=== PATIENT | female | born 1990 | race Caucasian/White ===

== ENCOUNTER 2019-09-24 05:54 | Inpatient (IN) | payer MEDICAID ==
[2019-09-24] MEDS ORDERED: RINGERS SOLUTION,LACTATED 1,000 ML IV ONE (06:09)
[2019-09-24] MEDS ORDERED: OXYTOCIN/0.9 % SODIUM CHLORIDE 30 UNIT/500 ML RTUINJ IV PRN ×2 (06:12→15:51)
[2019-09-24 06:57] LABS: ABSOLUTE EOSINOPHILS # (AUTO) 0.1 10^3/uL (0.0-0.6); ABSOLUTE LYMPHOCYTES (AUTO) 2.2 10^3/uL (0.5-4.7); ABSOLUTE MONOCYTES (AUTO) 0.6 10^3/uL (0.1-1.4); ABSOLUTE NEUT (AUTO) 8.2 10^3/uL (1.7-8.2); BASOPHILS % (AUTO) 0.3 % (0-2); EOSINOPHILS % (AUTO) 1.3 % (0-6); HEMATOCRIT 36.2 % (36.0-47.0); HEMOGLOBIN 12.6 g/dL (12.0-15.5); LYMPHOCYTES % (AUTO) 19.5 % (13-45); MEAN CORPUSCULAR HEMOGLOBIN 29.8 pg (27.0-33.4); MEAN CORPUSCULAR HGB CONC 34.8 g/dL (32.0-36.0); MEAN CORPUSCULAR VOLUME 86 fl (80-97); MONOCYTES % (AUTO) 5.3 % (3-13); PLATELET COUNT 272 10^3/uL (150-450); RED BLOOD COUNT 4.22 10^6/uL (3.72-5.28); SEGMENTED NEUTROPHILS % (AUTO) 73.6 % (42-78); TOTAL CELLS COUNTED % (AUTO) 100 %; WHITE BLOOD COUNT 11.2 10^3/uL (4.0-10.5)
[2019-09-24] MEDS: RINGERS SOLUTION,LACTATED 1,000 ML IV PRN ×2 (07:00→14:01)
[2019-09-24 07:15] LABS: APPEARANCE,URINE CLEAR; BILIRUBIN,URINE NEGATIVE (NEGATIVE); COLOR,URINE COLORLESS; GLUCOSE, URINE NEGATIVE (NEGATIVE); KETONES,URINE NEGATIVE (NEGATIVE); LEUKOCYTE ESTERASE,URINE NEGATIVE (NEGATIVE); NITRITE,URINE NEGATIVE (NEGATIVE); PROTEIN,URINE NEGATIVE (NEGATIVE); URINE SPECIFIC GRAVITY 1.002; UROBILINOGEN,URINE NEGATIVE mg/dL (<2.0)
[2019-09-24] MEDS ORDERED: OXYTOCIN 10 UNIT/ML VIAL ONE (07:19)
[2019-09-24] MEDS ORDERED: MISOPROSTOL 0.2 MG TABLET ONE (07:19)
[2019-09-24] MEDS ORDERED: OXYTOCIN/0.9 % SODIUM CHLORIDE 30 UNIT/500 ML RTUINJ ONE (07:20)
[2019-09-24] MEDS ORDERED: LIDOCAINE 1% INJ-PF (10 MG/ML) 30 ML SDV ONE (07:20)
[2019-09-24 07:36] LABS: URINE AMPHETAMINES SCREEN NEGATIVE; URINE BARBITURATES SCREEN NEGATIVE; URINE BENZODIAZEPINES SCREEN NEGATIVE; URINE COCAINE SCREEN NEGATIVE; URINE MARIJUANA (THC) SCREEN NEGATIVE; URINE METHADONE SCREEN NEGATIVE; URINE PHENCYCLIDINE SCREEN NEGATIVE
--- NOTE | 2019-09-24 08:01 | Admission Physical ---
Datetime Report Generated by CPN: 09/24/2019 08:01 CURRENT ADMISSION Chief Complaint: Scheduled Induction of Labor Chief Complaint Other: at 41.1 wks EGA for IOL due to post dates. Good FM, no LOF or VB Indication for Induction: Post Dates Admit Impression : Postterm, Intrauterine Admit Plan: Admit to Unit; Initiate Labor Protocol; Initiate Labor Induction Protocol ALLERGIES Medication Allergies: Yes Medication Allergies: aspirin/Facial swelling (09/24/2019) Latex: No Latex Allergies Food Allergies: NKA Environmental Allergies: NKA OBSTETRICAL HISTORY EDC: 09/16/2019 00:00 : 2 Para: 1 Term: 1 : 0 SAB: 0 IAB: 0 Ectopic: 0 Livin Cesareans: 0 VBACs: 0 Multiple Births: 0 Gestational Diabetes: No Rh Sensitization: No Incompetent Cervix: No STEPHANIE: No Infertility: No ART Treatment: No Uterine Anomaly: No IUGR: No Hx Previous C/S: No Macrosomia: No Hx Loss/Stillborn: No PIH: No Hx : No Placenta Previa/Abruption: No Depression/PP Depression: No PTL/PROM: No Post Hemorrhage: No Current Procedures: Ultrasound; NST Obstetrical History Comments: , induction for postdats SEE RECORDS Alcohol: No Marijuana : No Cocaine: No Other Illicit Drugs: No Cigarettes: Former Smoker. [id number] Cigarette Comments: [facility] 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 Surgery: No Heart Disease: No Hosp/Surgery: Yes Autoimmune Disorder: No Anesthetic Complications: No Kidney Disease: No Abnormal Pap Smear: No Neuro/Epilepsy: No Psychiatric Disorders: No Other Medical Diseases: No Hepatitis/Liver Disease: No Significant Family History: No Varicosities/Phlebitis: No Trauma/Violence : No Thyroid Dysfunction: No Medical History Comments: Hospital stay for son's INFECTIOUS HISTORY Gonorrhea: No Genital Herpes: No Chlamydia: No Tuberculosis: No Syphilis: No Hepatitis: No HIV/AIDS Exposure: No Rash or Viral Illness: No HPV: No PHYSICAL EXAM General: Normal HEENT: Normal Neurologic: Normal Thyroid: Normal Heart: Normal Lungs: Normal Breast: Normal Back: Normal Abdomen: Normal Genitourinary Exam: Normal Extremities: Normal DTRs: Normal Pelvic Type: Adequate Vital Signs: Reviewed; Within Normal Limits VAGINAL EXAM Dilatation: 2 Effacement: 75 Contraction Comments: No regular contractions MEMBRANES Membranes: Intact FETUS A EGA: 41.1 Monitoring: External US FHR- Baseline: 130 Variability: Moderate 6-25bpm Accelerations: 15X15 Decelerations: None FHR Category: Category I Presentation: Vertex Admit Comment: at 41.1 wks EGA for IOL for post dates -Admit to LDR -NPO and IVFs . LR at 125 cc/hr, after 1 liter LR -GBS negative -Hx of one prior , anticipate -Desires epidural PLANS FOR LABOR AND DELIVERY Labor and Delivery: None Pain Management: Natural; Epidural Feeding Preference: Breast Benefit of Breast Feed Discussed: Yes Circumcision: N/A INFORMED CONSENT Informed Consent Obtained: Vaginal Delivery; Induction of Labor; Risks, Benefits and Alternatives Discussed Signature: with User ID: Alexandra : with User ID: Alexandra
[2019-09-24] MEDS ORDERED: PROMETHAZINE HCL INJ 25 MG/1 ML VIAL IV ONE (11:36)
[2019-09-24] MEDS ORDERED: NALBUPHINE HCL INJ 10 MG/1 ML AMPULE INJ ONE (11:36)
[2019-09-24] MEDS ORDERED: PROMETHAZINE HCL INJ 25 MG/1 ML VIAL ONE (11:42)
[2019-09-24] MEDS ORDERED: NALBUPHINE HCL INJ 10 MG/1 ML AMPULE ONE (11:43)
[2019-09-24] MEDS ORDERED: EPHEDRINE SULFATE INJ 50 MG/1 ML AMPULE ONE (13:17)
[2019-09-24] MEDS ORDERED: FENTANYL/BUPIVACAINE/NS/PF 300 MCG/150 ML RTUINJ EPI ONE (13:18)
[2019-09-24] MEDS ORDERED: BUPIVACAINE HCL 0.25 % INJ/PF (2.5 MG/1 ML) 30 ML VIAL ONE (13:18)
[2019-09-24] MEDS ORDERED: FENTANYL CITRATE INJ/PF 100 MCG/2 ML AMPUL ONE (13:19)
[2019-09-24] MEDS ORDERED: DIPHENHYDRAMINE HCL 25 MG CAPSULE PO PRN (15:51)
[2019-09-24] MEDS ORDERED: MAGNESIUM HYDROXIDE SUSP 30 ML UDCUP PO PRN (15:51)
[2019-09-24] MEDS ORDERED: NA PHOS,M-B/NA PHOS,DI-BA (ADULT) 133 ML ENEMA PR PRN (15:51)
[2019-09-24] MEDS ORDERED: PSEUDOEPHEDRINE HCL 30 MG TABLET PO PRN (15:51)
[2019-09-24] MEDS ORDERED: DIPH/PERTUSS(ACELL)/TETANUS VAC/PF 0.5 ML SYR (>=10YO) IM PRN (15:51)
[2019-09-24] MEDS ORDERED: ACETAMINOPHEN 650 MG SUPP.RECT PR PRN (15:51)
[2019-09-24] MEDS ORDERED: BENZOCAINE/MENTHOL AEROSOL SPRAY 56 ML TOP PRN (15:51)
[2019-09-24] MEDS ORDERED: ZOLPIDEM TARTRATE 5 MG TABLET PO PRN (15:51)
[2019-09-24] MEDS ORDERED: ACETAMINOPHEN WITH CODEINE #3 TABLET PO PRN ×2 (15:51)
[2019-09-24] MEDS ORDERED: PROMETHAZINE HCL 25 MG TABLET PO PRN (15:51)
[2019-09-24] MEDS ORDERED: GLYCERIN/WITCH HAZEL LEAF 1 EACH MED..WIPE TP PRN (15:51)
[2019-09-24] MEDS ORDERED: DIBUCAINE 1% OINTMENT 28 GM TP PRN (15:51)
[2019-09-24] MEDS ORDERED: PROMETHAZINE HCL INJ 25 MG/1 ML VIAL IV PRN (15:51)
[2019-09-24] MEDS ORDERED: PROMETHAZINE HCL 25 MG SUPP.RECT PR PRN (15:51)
[2019-09-24] MEDS ORDERED: MEASLES,MUMPS&RUBELLA VACC/PF 0.5 ML VIAL SUBCUT PRN (15:51)
[2019-09-24] MEDS: DOCUSATE SODIUM 100 MG CAPSULE PO SCH (19:17)
[2019-09-24] MEDS: FERROUS SULFATE 325 MG TABLET PO SCH (19:17)
[2019-09-24] MEDS: FAMOTIDINE 20 MG TABLET PO SCH (22:48)
[2019-09-24] MEDS: IBUPROFEN 800 MG TABLET PO SCH (22:48)
[2019-09-25] MEDS: IBUPROFEN 800 MG TABLET PO SCH ×2 (06:08→13:17)
[2019-09-25 07:01] LABS: HEMOGLOBIN 11.8 g/dL (12.0-15.5); MEAN CORPUSCULAR HGB CONC 34.8 g/dL (32.0-36.0); MEAN CORPUSCULAR VOLUME 86 fl (80-97); PLATELET COUNT 247 10^3/uL (150-450); RED BLOOD COUNT 3.94 10^6/uL (3.72-5.28); RED CELL DISTRIBUTION WIDTH 12.8 % (11.5-14.0); WHITE BLOOD COUNT 13.9 10^3/uL (4.0-10.5)
[2019-09-25 08:25] VITALS: BP 118/68
--- NOTE | 2019-09-25 09:28 | PDOC PROGRESS REPORT ---
Subjective-OB Progress Note for:: 09/25/19 Subjective: Doing well, hsb at [facility], would like to go home if baby can go, , voiding Physical Exam (OB) Vital Signs: Temp Pulse Resp BP Pulse Ox 97.6 F 74 16 118/68 97 09/25/19 08:03 09/25/19 08:03 09/25/19 08:03 09/25/19 08:03 09/25/19 08:03 Intake & Output 09/24/19 09/25/19 09/26/19 06:59 06:59 06:59 Intake Total 877 Balance 877 Weight 108.3 kg - PIH/Pre-Eclampsia DTR's: 2 + Clonus: Negative Headache: Absent Epigastric Pain: No Visual Changes: No - Lochia Lochia Amount: Scant < 10 ml Lochia Color: Rubra/Red - Abdomen Description: Soft, Flat Hernia Present: No Fundal Description: Firm Fundal Height: u/u - u/2 Objective-Diagnostic Laboratory: 09/25/19 06:32 09/25/19 06:32 WBC 13.9 H RBC 3.94 Hgb 11.8 L Hct 34.0 L MCV 86 MCH 30.0 MCHC 34.8 RDW 12.8 Plt Count 247 Assessment and Plan(PN) - Assessment and Plan (1) Vaginal delivery Is this a current diagnosis for this admission?: Yes - Time Spent with Patient Time with patient: Less than 15 minutes Medications reviewed and adjusted accordingly: Yes - Disposition Anticipated Discharge: Home Within: within 24 hours
[2019-09-25] MEDS: FERROUS SULFATE 325 MG TABLET PO SCH ×2 (09:48→17:20)
[2019-09-25] MEDS: FAMOTIDINE 20 MG TABLET PO SCH (09:48)
[2019-09-25] MEDS: DOCUSATE SODIUM 100 MG CAPSULE PO SCH ×2 (09:48→17:20)
[2019-09-25] MEDS ORDERED: SENNOSIDES/DOCUSATE 8.6-50 MG 1 EACH TABLET PO SCH (10:00)
[2019-09-25] MEDS ORDERED: PRENATAL VITAMIN W DHA CAPSULE PO SCH (10:00)
--- NOTE | 2019-09-25 11:09 | PDOC DISCHARGE SUMMARY ---
Impression - Admit/DC Date/PCP Admission Date/Primary Care Provider: 09/24/19 05:54 Discharge Date: 09/25/19 - Discharge Diagnosis (1) Vaginal delivery Is this a current diagnosis for this admission?: Yes - Additional Information Resuscitation Status: Full Code Discharge Diet: As Tolerated, Regular Discharge Activity: Activity As Tolerated, Pelvic Rest Referrals: IVY DELUCA MD [ACTIVE STAFF] - (RTC 4 weeks) Home Medications: Prenat 115/Iron Fum/Folic/Dss [ 19 Tablet] 1 each PO DAILY 09/24/19 HPI Gestational Age: 41.1 Reason(s) for Admission: Induction of Labor Procedures: NST, Ultrasound Intrapartum Procedure(s): Spontaneous Vaginal Delivery Complication(s): Laceration-Perineal Laceration-Degree: 1st Hospital Course Hospital Course: routine Results Laboratory Results: WBC 13.9 10^3/uL (4.0-10.5) H 09/25/19 06:32 RBC 3.94 10^6/uL (3.72-5.28) 09/25/19 06:32 Hgb 11.8 g/dL (12.0-15.5) L 09/25/19 06:32 Hct 34.0 % (36.0-47.0) L 09/25/19 06:32 MCV 86 fl (80-97) 09/25/19 06:32 MCH 30.0 pg (27.0-33.4) 09/25/19 06:32 MCHC 34.8 g/dL (32.0-36.0) 09/25/19 06:32 RDW 12.8 % (11.5-14.0) 09/25/19 06:32 Plt Count 247 10^3/uL (150-450) 09/25/19 06:32 Lymph % (Auto) 19.5 % (13-45) 09/24/19 06:26 [place] % (Auto) 5.3 % (3-13) 09/24/19 06:26 Eos % (Auto) 1.3 % (0-6) 09/24/19 06:26 Baso % (Auto) 0.3 % (0-2) 09/24/19 06:26 Absolute Neuts (auto) 8.2 10^3/uL (1.7-8.2) 09/24/19 06:26 Absolute Lymphs (auto) 2.2 10^3/uL (0.5-4.7) 09/24/19 06:26 Absolute Monos (auto) 0.6 10^3/uL (0.1-1.4) 09/24/19 06:26 Absolute Eos (auto) 0.1 10^3/uL (0.0-0.6) 09/24/19 06:26 Absolute Basos (auto) 0.0 10^3/uL (0.0-0.2) 09/24/19 06:26 Seg Neutrophils % 73.6 % (42-78) 09/24/19 06:26 Urine Color COLORLESS 09/24/19 06:05 Urine Appearance CLEAR 09/24/19 06:05 Urine pH 7.0 (5.0-9.0) 09/24/19 06:05 Ur Specific [place] 1.002 09/24/19 06:05 Urine Protein NEGATIVE mg/dL (NEGATIVE) 09/24/19 06:05 Urine Glucose (UA) NEGATIVE mg/dL (NEGATIVE) 09/24/19 06:05 Urine Ketones NEGATIVE mg/dL (NEGATIVE) 09/24/19 06:05 Urine Blood SMALL (NEGATIVE) H 09/24/19 06:05 Urine Nitrite NEGATIVE (NEGATIVE) 09/24/19 06:05 Urine Bilirubin NEGATIVE (NEGATIVE) 09/24/19 06:05 Urine Urobilinogen NEGATIVE mg/dL (<2.0) 09/24/19 06:05 Ur Leukocyte Esterase NEGATIVE (NEGATIVE) 09/24/19 06:05 Urine Ascorbic Acid NEGATIVE (NEGATIVE) 09/24/19 06:05 Urine Opiates Screen NEGATIVE 09/24/19 06:06 Urine Methadone Screen NEGATIVE 09/24/19 06:06 Ur Barbiturates Screen NEGATIVE 09/24/19 06:06 Ur Phencyclidine Scrn NEGATIVE 09/24/19 06:06 Ur Amphetamines Screen NEGATIVE 09/24/19 06:06 U Benzodiazepines Scrn NEGATIVE 09/24/19 06:06 Urine Cocaine Screen NEGATIVE 09/24/19 06:06 U Marijuana (THC) Screen NEGATIVE 09/24/19 06:06 RPR NONREACTIVE (NONREACTIVE) 09/24/19 06:26 Blood Type O POSITIVE 09/24/19 06:26 Antibody Screen NEGATIVE 09/24/19 06:26 Plan Health Concerns: routine Plan of Treatment: normal pp care, rev S&S to report Goals: normal pp course, no complications Time Spent: Less than 30 Minutes
--- NOTE | 2019-09-26 15:29 | Delivery Summary ---
Del Sum A-C Datetime Report Generated by CPN: 09/26/2019 15:28 DELIVERY PERSONNEL DELIVERY PERSONNEL: [id number] Delivery Doctor:: Zulema Reynoso CNM WAYBILL CLERK:: Marcin Arteaga WAYBILL CLERK Labor and Delivery Nurse:: Tere Maria RN Labor and Delivery Nurse:: TREVOR Allan Nursery Nurse:: Teri Hayden RN- BON [place] Tech/PUSH BUTTON SWITCH ASSEMBLER: Renetta Viveros, DIRECTOR OF CORPORATE STRATEGY Additional Personnel: : Juana Ariza, RN MATERNAL INFORMATION Delivery Anesthesia: Epidural Medications After Delivery: Pitocin 30 Units in 500ml NS/D5W Estimated Blood Loss (ml): 100 Delivery QBL: 100 Delivery QBL Comment: 100 Maternal Complications: None Provider Comments: Called to Room 2. Patient complete and pushing w vertex at perineum. Vertex delivered; vertex retracted. Head of bed flattened, [place], suprapubic pressure toward left side with delivery of anterior, left shoulder, then bodydelivered with patient pushing continuously. 1 minute dystocia. Face wiped. Spontaneous cry and respirations. Baby placed on patient's abdomen and cared for by nursery RN. Cord clamped x2, after 2 min delay, then cut by fob. Apgars 8-8. 3 vessel cord. 2 superficial vaginal tears repaired. Patient tolerated procedure well. LABOR SUMMARY EDC: 09/16/2019 00:00 No. Babies in Womb: 1 Attempted: No Labor Anesthesia: Epidural LABOR INFORMATION Reason for Induction: Post Dates Onset of Labor: 09/24/2019 08:30 (Annotations: Data stored by CPN on behalf of user) Complete Dilatation: 09/24/2019 14:45 Oxytocin: Induction Group B Beta Strep: Negative Antibiotics # of Doses: 0 Steroids Given: None Reason Steroids Not Administered: Not Applicable MEMBRANES Membranes Rupture Method: Artificial Membranes Rupture Method: Spontaneous Rupture of Membranes: 09/24/2019 10:36 Length of Rupture (hr): 4.70 Amniotic Fluid Color: Clear Amniotic Fluid Color: Clear Amniotic Fluid Amount: Small Amniotic Fluid Amount: Scant Amniotic Fluid Odor: Normal STAGES OF LABOR Stage 1 hr: 6 Stage 1 min: 15 Stage 2 hr: 0 Stage 2 min: 33 Stage 3 hr: 0 Stage 3 min: 5 Total Time in Labor hr: 6 Total Time in Labor min: 53 VAGINAL DELIVERY Episiotomy: None Laceration #1: Vaginal Laceration Extension #1: First Degree Laceration Repair: Yes Laceration Repair Note: 2 superficial right vaginal tears repaired using interrupted stitches Sponge Count Correct: N/A Sharps Count Correct: Yes CSECTION DELIVERY Primary Indication: N/A Secondary Indication: N/A CSection Incidence: N/A Labor: N/A Elective: N/A CSection Incision: N/A BABY A INFORMATION Delivery Date/Time: 09/24/2019 15:18 Method of Delivery: Vaginal Method of Delivery: Vaginal Nurse Controlled Delivery: No Born in Route : No : N/A Forceps: N/A Vacuum Extraction: N/A Shoulder Dystocia : Yes SHOULDER DYSTOCIA BABY A 1st Intervention to Resolve: McRobert's Maneuver 2nd Intervention to Resolve: Suprapubic Pressure 3rd Intervention to Resolve: LOWERED HEAD OF THE BED Verify NO Fundal Pressure: No Fundal Pressure Applied Arm Under Symphisis at Del: Left PRESENTATION/POSITION BABY A Presentation: Cephalic Presentation: Cephalic Presentation: Cephalic Presentation: Cephalic Cephalic Presentation: Vertex Vertex Position: Right Occipital Anterior Breech Presentation: N/A PLACENTA INFORMATION BABY A Placenta Delivery Time : 09/24/2019 15:23 Placenta Method of Delivery: Spontaneous Placenta Method of Delivery: Spontaneous Placenta Status: Delivered SCORES BABY A Heart Rate 1 min: >100 bpm Resp Effort 1 min: Good Cry Reflex Irritability 1 min: Cough or Sneeze or Pulls Away Muscle Tone 1 min: Some Flexion of Extremities Color 1 min: Body Brea, Extremities Blue SCORE 1 MIN: 8 Heart Rate 5 min: >100 bpm Resp Effort 5 min: Good Cry Reflex Irritability 5 min: Cough or Sneeze or Pulls Away Muscle Tone 5 min: Some Flexion of Extremities Color 5 min: Body Brea, Extremities Blue Resuscitation Effort 5 min: N/A SCORE 5 MIN: 8 Resuscitation Effort 10 min: N/A INFANT INFORMATION BABY A Gestational Age at Delivery: 41.1 Gestational Status: Late Term- 41- 41.6 Weeks Outcome : Liveborn Condition : Stable Infant Sex: Female Sex: Female IDENTIFICATION BABY A Infant Verification Date/Time: 09/24/2019 16:34 ID Band Number: [id number] Mother's Name Verified: Yes Infant RN Verifying : Pravin HAYDEN, RN/ BL ROULUND, RN WEIGHT/LENGTH BABY A Infant Birthweight (gm): 3490 Weight (lb): 7 Weight (oz): 11 Infant Length (in): 19.75 Infant Length (cm): 50.17 CORD INFORMATION BABY A No. Cord Vessels: 3 Nuchal Cord : Around Neck x1, Loose Cord Blood Taken: Yes-For Eval (Mom's Blood Type - or O+) Infant Suction: None ASSESSMENT BABY A Infant Complications: Meconium; Shoulder Dystocia; Other Complications- Other: NUBAIN/PHENERGAN @ 1154 Physical Findings at Delivery: Caput Succedaneum; Molding of the Head; Bruising Infant Respirations: Appears Normal Skin to Skin: Yes Skin to Skin: Yes Concession Supervisor/ALS Called : No Infant Care By: Enid Hayden RN Transferred To: Remains with Mother BABY B INFORMATION : N/A SIGNATURES Assignment: Ahsan Rawls MD Signature: with User ID: Carmel : with User ID: [email or web address] : I personally evaluated and examined the patient in conjunction with the MLP and agree with the assessment, treatment plan and disposition. : I personally evaluated and examined the patient in conjunction with the MLP and agree with the assessment, treatment plan and disposition.
== END 2019-09-25 19:42 | disposition home or self-care (01) | DRG 807 ==
LOC: LR 05:54 → 2S 18:15
PROVIDERS: ADMIT Obstetrics & Gynecology; ATTEND Obstetrics & Gynecology
PROC: 10E0XZZ Delivery of Products of Conception, External Approach (ICD-10-PCS; principal; 2019-09-24)
PROC: 0HQ9XZZ Repair Perineum Skin, External Approach (ICD-10-PCS; 2019-09-24)
PROC: 3E033VJ Introduction of Other Hormone into Peripheral Vein, Percutaneous Approach (ICD-10-PCS; 2019-09-24)
PROC: 10907ZC Drainage of Amniotic Fluid, Therapeutic from Products of Conception, Via Natural or Artificial Opening (ICD-10-PCS; 2019-09-24)
DX: O48.0 Post-term pregnancy (principal); Z37.0 Single live birth; O70.0 First degree perineal laceration during delivery; O69.81X0 Labor and delivery complicated by cord around neck, without compression, not applicable or unspecified; O66.0 Obstructed labor due to shoulder dystocia; O77.0 Labor and delivery complicated by meconium in amniotic fluid; Z3A.41 41 weeks gestation of pregnancy; Z88.6 Allergy status to analgesic agent; Z87.891 Personal history of nicotine dependence
CPT/HCPCS: 1967; 36415; 80307; 81005; 85025; 85027; 86592; 86850; 86900; 86901; 88307; J2300; J2550; J2590; J3010; J3490